=== PATIENT | female | born 1990 | race Caucasian/White ===

== ENCOUNTER 2017-08-07 17:44 | Emergency (ER) | payer OTHER ==
[~2017-08-07 17:44] MED LIST: ALBU90OI INH; ALPR.5 PO; AMOX500 PO; BENADRYL; CYCL10 PO; Cleocin HCl150 MG PO; DOXY100 PO; FAMO20 PO; HYDACE5 PO; IBUP100S; IBUP800 PO; LEVSOD200 PO; MECL25 PO; MULVITMINE PO; NAPR550 PO; PENVK500 PO; PRED20 PO; PROM25 PO; PROM25S PR; PSEU120ER PO; Peridex480 ML PO; RABE20 PO; RANI150; RANI150 PO; RXHYDACE PO; RXNAPNA550 PO; RXPROM25S PR; SPRINTEC; SUCR1 PO; TYLECOD3 PO; Veetids 500500 MG PO; Verotin-Gr Cap1 EACH PO; YAS; [UNRECOGNIZED DRUG - OTHER] PO; [UNRECOGNIZED DRUG - OTHER] PO
== END 2017-08-07 18:36 | disposition left against medical advice (07) ==
LOC: ER 17:44
DX: Z53.21 Procedure and treatment not carried out due to patient leaving prior to being seen by health care provider (principal)

== ENCOUNTER → 2017-11-16 | Outpatient (CLI) | payer OTHER | END | disposition home or self-care (01) | LOC: LAB EV 17:38 → LAB SHORT 17:38 | DX: E03.9 Hypothyroidism, unspecified (principal) | CPT/HCPCS: 84443 ==

== ENCOUNTER 2018-07-14 15:16 | Emergency (ER) | payer OTHER ==
[~2018-07-14] VITALS: Ht 160 cm; Wt 56.2 kg
[2018-07-14] MEDS ORDERED: PENVK500 PO (15:51)
== END 2018-07-14 15:56 | disposition home or self-care (01) ==
LOC: ER 15:16
DX: K04.7 Periapical abscess without sinus (principal); Z88.8 Allergy status to other drugs, medicaments and biological substances; Z79.899 Other long term (current) drug therapy; F17.210 Nicotine dependence, cigarettes, uncomplicated
CPT/HCPCS: 99282

== ENCOUNTER 2020-04-21 19:04 | Emergency (ER) | payer OTHER ==
[~2020-04-21] VITALS: Ht 154.9 cm; Wt 56.2 kg
[2020-04-21] MEDS ORDERED: Cleocin HCl300 MG PO (20:52)
[2020-04-21] MEDS ORDERED: IBU600 MG PO (20:52)
== END 2020-04-21 21:27 | disposition home or self-care (01) ==
LOC: ER 19:04
DX: K02.9 Dental caries, unspecified (principal); K08.89 Other specified disorders of teeth and supporting structures
CPT/HCPCS: 96372; 99282-25; J1885

== ENCOUNTER → 2021-03-08 | Outpatient (CLI) | payer OTHER ==
[~2021-03-08] MED LIST changes: +Cleocin HCl300 MG PO; +IBU600 MG PO
[2021-03-08 20:25] LABS: BASOPHILS ABSOLUTE AUTO 0.06 K/mm3 (0.00-0.23); BASOPHILS PERCENT AUTO 1 % (0-2); EOSINOPHILS ABSOLUTE AUTO 0.18 K/mm3 (0.00-0.68); EOSINOPHILS PERCENT AUTO 3 % (0-6); Hematocrit 41.3 % (33.0-51.0); Hemoglobin 13.8 g/dL (11.5-16.0); IMMATURE GRAN ABSOLUTE AUTO 0.01 K/mm3 (0.00-0.10); IMMATURE GRAN PERCENT AUTO 0 % (0-1); LYMPHOCYTES ABSOLUTE AUTO 2.14 K/mm3 (0.84-5.20); LYMPHOCYTES PERCENT AUTO 30 % (21-46); MONOCYTES PERCENT AUTO 7 % (4-13); Mean Corpuscular HGB 28.3 pg (26.0-34.0); Mean Corpuscular HGB Conc 33.4 g/dL (31.5-36.5); Mean Corpuscular Volume 85 fL (80-100); Mean Platelet Volume 11.5 fL (9.1-12.4); NEUTROPHILS ABSOLUTE AUTO 4.23 K/mm3 (1.96-9.15); NEUTROPHILS PERCENT AUTO 60 % (41-73); Platelet Count 244 K/mm3 (150-400); RDW Coefficient Variation 12.3 % (11.7-14.2); RDW Standard Deviation 37.7 fL (35.1-46.3); Red Blood Cell Count 4.88 M/mm3 (3.80-5.20); White Blood Cell Count 7.12 K/mm3 (4.00-11.30)
[2021-03-08 20:44] LABS: Alanine Aminotransfer (ALT/SGP 19 U/L (12-78); Albumin, Blood 3.9 g/dL (3.4-5.0); Albumin/Globulin Ratio 1.1 (0.8-1.8); Alk Phos 59 U/L (50-136); Anion Gap 6 mmol/L (6-16); Aspartate Aminotrans (AST/SGOT 14 U/L (12-37); Bilirubin, Total 0.6 mg/dL (0.1-1.0); Blood Urea Nitrogen 8 mg/dL (8-24); Bun/Creatinine Ratio 11.3 (12.0-20.0); CO2, Blood 24 mmol/L (21-32); Calcium, Blood 8.8 mg/dL (8.5-10.1); Chloride, Blood 110 mmol/L (98-108); Creatinine, Blood 0.71 mg/dL (0.40-1.00); Globulin, Blood 3.5 g/dL (2.2-4.0); Glomerular Filtration Rate >60 (60-); Glucose, Blood 86 mg/dL (70-99); Sodium, Blood 140 mmol/L (136-145); Total Protein, Blood 7.4 g/dL (6.4-8.2)
[2021-03-08 20:47] LABS: Thyroid Stimulating Hormone <0.005 uIU/mL (0.360-4.800)
[2021-03-10 07:10] LABS: HBSAG SCREEN Negative (Negative); HEP B CORE AB, TOT Negative (Negative); HEP C VIRUS AB <0.1 (0.0-0.9)
== END | disposition home or self-care (01) ==
LOC: LAB 14:10 → LAB SHORT 14:10
PROVIDERS: Family Medicine
DX: Z11.59 Encounter for screening for other viral diseases (principal); E89.0 Postprocedural hypothyroidism; Z79.899 Other long term (current) drug therapy
CPT/HCPCS: 80053; 82306; 84443; 84481; 85025

== ENCOUNTER → 2024-04-25 | Outpatient (CLI) | payer OTHER ==
[2024-04-25 13:25] LABS: BASOPHILS ABSOLUTE AUTO 0.09 K/mm3 (0.00-0.23); BASOPHILS PERCENT AUTO 1 % (0-2); EOSINOPHILS ABSOLUTE AUTO 0.26 K/mm3 (0.00-0.68); EOSINOPHILS PERCENT AUTO 3 % (0-6); Hematocrit 39.1 % (33.0-51.0); Hemoglobin 13.4 g/dL (11.5-16.0); IMMATURE GRAN ABSOLUTE AUTO 0.02 K/mm3 (0.00-0.10); IMMATURE GRAN PERCENT AUTO 0 % (0-1); LYMPHOCYTES ABSOLUTE AUTO 2.53 K/mm3 (0.84-5.20); LYMPHOCYTES PERCENT AUTO 30 % (21-46); MONOCYTES ABSOLUTE AUTO 0.45 K/mm3 (0.16-1.47); MONOCYTES PERCENT AUTO 5 % (4-13); Mean Corpuscular HGB 28.8 pg (26.0-34.0); Mean Corpuscular HGB Conc 34.3 g/dL (31.5-36.5); Mean Corpuscular Volume 84 fL (80-100); Mean Platelet Volume 10.8 fL (9.1-12.4); NEUTROPHILS ABSOLUTE AUTO 5.14 K/mm3 (1.96-9.15); NEUTROPHILS PERCENT AUTO 61 % (41-73); Platelet Count 271 K/mm3 (150-400); RDW Coefficient Variation 13.2 % (11.7-14.2); RDW Standard Deviation 40.7 fL (35.1-46.3); Red Blood Cell Count 4.65 M/mm3 (3.80-5.20); White Blood Cell Count 8.49 K/mm3 (4.00-11.30)
[2024-04-25 14:35] LABS: Very Low Density Lipoprot Chol 28 mg/dL (6-28)
[2024-04-25 14:47] LABS: Alanine Aminotransfer (ALT/SGP 21 U/L (12-78); Albumin, Blood 3.9 g/dL (3.4-5.0); Albumin/Globulin Ratio 1.1 (0.8-1.8); Alk Phos 75 U/L (50-136); Anion Gap 11 mmol/L (3-11); Aspartate Aminotrans (AST/SGOT 13 U/L (12-37); Bilirubin, Total 0.4 mg/dL (0.1-1.0); Blood Urea Nitrogen 6 mg/dL (8-24); Bun/Creatinine Ratio 8.4 (12.0-20.0); CHOL/HDL RATIO 3.6; CO2, Blood 23 mmol/L (21-32); Calcium, Blood 8.6 mg/dL (8.5-10.1); Chloride, Blood 108 mmol/L (98-108); Cholesterol 204 mg/dL (50-200); Creatinine, Blood 0.72 mg/dL (0.40-1.00); Free Thyroxine 1.65 ng/dL (0.70-1.60); Globulin, Blood 3.4 g/dL (2.2-4.0); Glomerular Filtration Rate 112 (60-); Glucose, Blood 100 mg/dL (70-99); HDL Cholesterol 56 mg/dL (>39); LDL/HDL RATIO 2.1; Low Density Lipoprotein Chol 120 mg/dL (0-110); Sodium, Blood 138 mmol/L (136-145); Total Protein, Blood 7.3 g/dL (6.4-8.2); Triglycerides 140 mg/dL (30-140)
[2024-04-27 15:51] LABS: HIV 1,2 COMBO ANTIGEN/ANTIBODY Negative (Negative)
[2024-04-27 17:34] LABS: HEPATITIS C AB CIA INTERP Negative (Negative); HEPATITIS C ANTIBODY CIA INDEX 0.09 IV
== END ==
LOC: LAB 11:55 → LAB SHORT 11:55
PROVIDERS: Nurse Practitioner Family
DX: E89.0 Postprocedural hypothyroidism (principal); Z11.4 Encounter for screening for human immunodeficiency virus [HIV]; Z11.59 Encounter for screening for other viral diseases; F41.0 Panic disorder [episodic paroxysmal anxiety]; F41.1 Generalized anxiety disorder
CPT/HCPCS: 80053; 80061; 82306; 84439; 84443; 84481; 85025; 86803; 87389